=== PATIENT | female | born 1985 | race Caucasian/White ===

== ENCOUNTER 2023-08-03 11:24 | Day surgery (SDC) | payer OTHER, SELFPAY ==
--- NOTE | 2023-08-03 | PATH_ITS ---
[facility] Accession Number: [id number] No. of containers..02 Tissue . 01 Material submitted: . PART A: gastrointestinal site - ANTRUM PART B: esophagus, E-G Junction - GASTROESOPHAGEAL JUNCTION . 01 Diagnosis: A. Stomach, antrum, biopsy: Antral and oxyntic gastric mucosa with unremarkable histology. No H. Pylori like organisms identified (on the H/E- stained sections). Negative for gastritis, intestinal metaplasia, dysplasia, or malignancy. -- B. Gastro esophageal junction, biopsy: Columnar epithelium, negative for intestinal metaplasia. Squamous epithelium with no increased intraepithelial eosinophils. Negative for dysplasia and negative for malignancy. TXN 08/05/2023 1424 Local . 01 Electronically signed: . Tawfeemelina Metcalf MD, Pathologist NPI- [id number] . 01 Gross description: . Part A: ANTRUM: Received in formalin are 2 fragment(s) of stroud, soft tissue measuring 0.1 x 0.1 x 0.1 cm to 0.3 x 0.3 x 0.2 cm submitted entirely in 1 cassette(s) Part B: GASTROESOPHAGEAL JUNCTION: Received in formalin is 1 fragment(s) of stroud, soft tissue measuring 0.3 x 0.1 x 0.1 cm submitted entirely in 1 cassette(s) /MONSERRAT 08/04/2023 0112 Local . 01 Pathologist provided ICD-10: R12 . 01 CPT . 879985, 601349 Specimen Comment: A courtesy copy of this report has been sent to [phone] Performed at: [address] [address], [place], [place] [id number] MD Heath Carcamo MD Phone: [phone]
[2023-08-03 11:55] VITALS: BP 116/81; PULSE 84; RESP 16; TEMP 36.1; O2SAT 94
--- NOTE | 2023-08-03 11:57 | P.HP_ITS ---
History of Present Illness History of Present Illness Date Patient Seen: 08/03/23 Time Patient Seen: 11:57 Chief complaint: EGD w/poss bx Narrative: I reviewed the recent office note by Tao Lorenz. No significant changes. She has not taking any form of PPI. She has frequent heartburn, nausea, and vomiting over the last 8 years or so. She has a remote history of surgically treated peptic ulcer disease but did not get follow-up for this. She presents for said follow-up now. [facility] Medical History Sleep apnea Ulcer Surgical History H/O abdominoplasty H/O: Meds Home Medications and Allergies Home Medications Medication Instructions Recorded Confirmed Type Ortho Tri-Cyclen (21) 1 tab PO DAILY 08/03/23 08/03/23 History Allergies Allergy/AdvReac Type Severity Reaction Status Date / Time No Known Drug Allergies Allergy Verified 08/03/23 11:51 Review of Systems Review of Systems ROS: Yes All systems reviewed with the patient and are negative except as otherwise documented Exam Const General: cooperative HENMT Head: normal to inspection Eyes General: appearance normal, both eyes and all related structures Neck Neck: normal visual inspection Chest Chest: normal inspection of the chest Resp Effort & Inspection: normal respiratory effort Cardio Rate: regular rate GI Inspection: normal to inspection Skin General: no rashes or lesions noted Neuro General: patient alert and patient awake Extrem General: normal to inspection and no pedal edema Psych Appearance: grossly normal Assessment & Plan Assessment & Plan narrative: 37-year-old female with chronic intermittent nausea vomiting and reflux. She has a history of surgically treated peptic ulcer disease. EGD is pursued today.
--- NOTE | 2023-08-03 11:58 | PM.PREOP ---
Pre-operative Note Interval Note History & Physical reviewed/Exam performed by Physician: Yes Changes to H&P: No ASA Class (for procedural sedation): II
[2023-08-03] MEDS: LACTATED RINGERS 1,000 ML 42 ML IV (12:14)
--- NOTE | 2023-08-03 13:08 | PM.OP.EGD ---
Operative Date/Time/Diagnoses Date of procedure: 08/03/23 Time of procedure: 13:08 Pre-op diagnosis: Nausea, vomiting, reflux Post-op diagnosis: same Procedure & Clinicians Study performed: EGD with biopsies Same procedure as scheduled: Yes Indications: Intermittent nausea vomiting reflux Surgeon: Tamir Johnson Procedure Notes SCOAP/Timeout: Done Procedure in detail: After the risks and benefits were explained, written and verbal informed consent was obtained. The patient was brought into the procedure room and placed into the left lateral decubitus position. Please see anesthesia notes for sedation details. The scope was introduced into the mouth through the bite block and advanced under direct visualization to the 2nd portion of the duodenum. The scope was slowly withdrawn carefully examining the mucosa for any defects or lesions. Retroflexed views were accomplished in the stomach. The stomach was decompressed, the scope was then removed from the patient who tolerated the procedure well. Sedation minutes: 11 Complications: none Impression: 1. Duodenum: No recurrent ulceration identified from the bulb through to the 2nd portion. No stricturing. Visually I did not see any evidence of prior surgical intervention. There was a normal cordova bile staining of the 2nd portion. The major papilla was seen and appeared visually normal and easily draining bile. 2. Stomach: There was a mild gastropathy in the antrum and therefore biopsies were acquired for exclusion of H pylori. Retroflexed views disclosed a fairly cavernous stomach which was very ?J-shaped?. It was quite easy to see both the pyloric channel and the gastroesophageal junction in retroflexed views. In order to navigate into the duodenal I actually had to reduce the scope from approximately mid antrum twisty somewhat unusual. 3. Esophagus: The squamocolumnar junction was slightly variable but generally correlated with the GEJ at about 36 cm from the incisors. I did see evidence of LA grade B erosive esophagitis. Because of the wandering Z-line I elected to take a biopsy from GEJ to exclude specialized intestinal metaplasia. The remainder of the esophagus was unremarkable. Endoscopic diagnosis 1. J-shaped stomach 2. Mild gastropathy 3. LA grade B erosive esophagitis 4. Irregular Z-line Post-procedure Plan for aftercare: 1. Await histology. 2. Surveillance EGD will be considered contingent on histopathology results. 3. A more proactive anti-reflux therapy appears to be indicated here. 4. Follow up GI clinic. Disposition: PACU
[2023-08-03 13:09] VITALS: BP 108/76; PULSE 72; RESP 17; TEMP 36.2; O2SAT 92
[2023-08-03 13:14] VITALS: BP 110/75; PULSE 64; RESP 17; O2SAT 94
[2023-08-03 13:19] VITALS: BP 108/74; PULSE 70; RESP 16; O2SAT 95
[2023-08-03 13:26] VITALS: BP 124/76; PULSE 64; RESP 11; TEMP 36.7; O2SAT 94
--- NOTE | 2023-08-03 13:33 | SUR.PHASEII ---
Pt denies any complaints at present time. Pt ready to go home.
== END 2023-08-03 13:38 | disposition home or self-care (01) ==
PROVIDERS: Family Provider General Practice; Referring Provider Internal Medicine Gastroenterology; Visit Provider Internal Medicine Gastroenterology
PROC: 0DJ08ZZ Inspection of Upper Intestinal Tract, Via Natural or Artificial Opening Endoscopic (ICD-10-PCS; CPT 43239; principal; 2023-08-03 12:30)
DX: R11.2 Nausea with vomiting, unspecified (principal); K31.9 Disease of stomach and duodenum, unspecified; K20.80 Other esophagitis without bleeding
CPT/HCPCS: 43239; J2704

== ENCOUNTER 2024-01-14 13:00 | Outpatient (RCR) | payer OTHER, SELFPAY ==
--- NOTE | 2023-10-23 20:27 | PT.OIE ---
Current Diagnoses Stress incontinence (female) (male) (10/23/23) Past Medical History (Last Reviewed 08/03/23 @ 11:57 by Tamir Johnson MD) Sleep apnea Ulcer Past Surgical History (Last Reviewed 08/03/23 @ 11:57 by Tamir Johnson MD) H/O abdominoplasty H/O: Visit Care Team Role Provider Type Dorian Herrmann MD Attending Provider Non-Staff Family Provider Referring Provider Specialty: Family Practice Address: [facility], Email: Physical Therapy Initial Evaluation PT-OP-A Visit Information Start: 10/15/23 16:46 Freq: Status: Active Protocol: Document 10/23/23 11:25 LRN (Rec: 10/23/23 12:24 LRN [id number]) Out-Patient Physical Therapy Visit Information Visit Information Visit Type Initial Evaluation Visit Note Pt in BR to start Visit Start Time 11:25 Visit Stop Time 12:15 Visit Number 1 Evaluation Information Evaluation Date 10/23/23 Precautions Precautions LE lymphedema, ulcers, back pain, surgical history ( ruptured peptic ulcer, abdominoplasty, breast augmentation. PT-OP-B Current Condition Start: 10/15/23 16:46 Freq: Status: Active Protocol: Document 10/23/23 11:25 LRN (Rec: 10/23/23 12:24 LRN [id number]) Current Condition History of Current Condition Onset Date 3.5 yrs ago. Current Complaints Urinary incontinence History of Current Condition YARED started 3.5 yrs ago after returning from a [place] that pt thoughout was normal, so did nothing about it until now. 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 She currently is having lymphedema treatments at [facility] in [place] (seen for 6 sessions to date). She plans to soon get a LE compression machine for the LE's for home use. Pt sleeps with a CPAP machine. Prior Treatments and Tests None. Pt is currently being treated for LE lymphedema. Developmental History Developmental History Has 2 children, first natural, 2nd emergency after 16 hrs of waiting. had 2 epidurals because anesthesia didn't work first 2 times. No urinary leakage after first child. 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 HEP. Current Functional Impairments (Reported) Functional Limitations- Work/School Has been in for 23 yrs. Functional Limitations- Recreation/ She runs 3-4x/week and does an Hobbies ex class. States she has been told she shouldn't run, but to incline walk instead. Personal Factors Other Personal Factors That May Effect Receiving lymphatic therapy Therapy/Recovery for LE lymphedema. 02/01/16 surgery for ruptured peptic ulcer and almost from sepsis (6 months after having son). Oct 2018 - adominalplasty. Recovering from rough divorce that ended a yr ago. PT-OP-C Subjective Start: 10/15/23 16:46 Freq: Status: Active Protocol: Document 10/23/23 11:25 LRN (Rec: 10/23/23 12:24 LRN [id number]) OP-PT Subjective Patient Comments Patient Comments Pt reports just starting her period and bleeding; therefore would like to defer PF assessment until next visit. Patient Questionnaires Pelvic Pain and Urgency/Frequency Patient Symptom Scale Pelvic Pain Score 12 OP-PT Pain Assessment Pain Assessment Grid Paper Pain Assessment Grid Completed Yes Location L LE Pain Location Details L thigh/ankle Intensity 4 Scale Used Numeric (0 - 10) Low Back Pain Location Details Upper low back Intensity 2 Scale Used Numeric (0 - 10) Abdomen Pain Location Details Abdomen towards R side Intensity 2 Scale Used Numeric (0 - 10) PT-OP-I Pelvic Floor Start: 10/15/23 16:46 Freq: Status: Active Protocol: Document 10/23/23 11:25 LRN (Rec: 10/23/23 12:24 LRN [id number]) Pelvic Floor Assessment Urine Urinary Symptoms Urge Sensation,Dribbling After Urination,Incomplete Emptying ,Pain Other Urinary Symptoms Sometimes sharp shooting pain in Pelvic area with sudden urge to urinate after urintating. Triggers: running water As soon as leavest he bathroom , walking and exercising has urge to urinate. Leakage Size Small Leakage Cause Cough,Exercise,Urge Leaks Per Day 2-3x/day Voiding Frequency every 45-60 minutes, 10-12x/ day Nocturia 2-3x/night (every 2 hrs) Pads Used In 24 Hours 2-3 Urine Pad Type Panty Liner Bowel Bowel Movement Frequency 4-5/day Motley Stool Chart Comments Mostly type 2,4. PT-OP-J Posture/Palpation/Skin Start: 10/15/23 16:46 Freq: Status: Active Protocol: Document 10/23/23 11:25 LRN (Rec: 10/23/23 12:24 LRN [id number]) Posture Evaluation Position Standing L-Spine Posture Increased Lordosis Shoulder Posture (R) Elevated Pelvis Posture Anteriorly Tilted Knee Posture (L) Genu Valgus,(R) Genu Valgus Comments Posture Comments Dowager hump. Palpation Assessment Location Abdomen Palpation Location Decreased soft tissue mobility on L side of trunk. Palpation Findings Soft Tissue Tightness PT-OP-K Range of Motion Start: 10/15/23 16:46 Freq: Status: Active Protocol: Document 10/23/23 11:25 LRN (Rec: 10/23/23 12:24 LRN [id number]) Lumbar Spine Range of Motion Lumbar Spine Active Degrees Testing Position Standing Flexion 50 Extension 35 Rotation Left 30 Rotation Right 0 Lateral Flexion Left 20 Lateral Flexion Right 15 ROM Limitations Soft Tissue Tightness Hip Goniometric Range of Motion Hip Right Passive Testing Position Supine Abduction 25 Internal Rotation 20 External Rotation 40 Left Passive Testing Position Supine Abduction 25 Internal Rotation 40 External Rotation 30 PT-OP-M Strength Start: 10/15/23 16:46 Freq: Status: Active Protocol: Document 10/23/23 11:25 LRN (Rec: 10/23/23 12:24 LRN [id number]) Trunk Strength Trunk Manual Muscle Testing Core Stabilization Loss of core rotational stability with MMT of LE's. Hip Strength Hip Manual Muscle Testing Right Abduction 3 Fair Adduction 3- Fair- External Rotation 3+ Fair+ Comments Strength is 5/5 except as indicated above. Left External Rotation 3+ Fair+ Comments Strength is 5/5 except as indicated above. PT-OP-Q Treatments Start: 10/15/23 16:46 Freq: Status: Active Protocol: Document 10/23/23 11:25 LRN (Rec: 10/23/23 12:24 LRN [id number]) Self-Care/Home Management Treatment Education Other Education Discussed results of partial evaluation and for completion of PF exam at next visit, goals, treatment, and plan of care (POC) with pt, discussed attendance/cx/dns policy; pt agreeable to evaluation, goals , treatment, attendance/cx/dns policy and POC. Discussed and educated pt in specifics for completion of in use of Bladder Diary and I/S in tracking for 1 week. Discussed pt's current exercise program and recommended pt stop running as it may be aggrevating her lymphedema and possibly affecting her PF. Activities Self-Care/Home Management Activities Issued & reviewed HEP: Kegel ex's and discussed exercise of Quick Flicks, Long Holds and Aggravators. PT-OP-T Assessment and Plan Start: 10/15/23 16:46 Freq: Status: Active Protocol: Document 10/23/23 11:25 LRN (Rec: 10/23/23 12:24 LRN [id number]) Physical Therapy Assessment Rehab Potential Rehabilitation Potential Fair Evaluation Complexity Number of Personal Factors/Comorbidities 3 or More Number of Body Systems Impaired 4 or More Clinical Presentation at Evaluation Evolving Impairments Impairments Activity Tolerance,Edema,Pain, Posture,ROM,Soft Tissue Mobility,Strength,Transfers Goals Three Impairment Increased frequency of urination (10-12x/day) Short Term Goal (STG) Pt will be educate in urge deference technique for bladder retraining to decrease times of urination to no more than 8x/day STG Duration 12/04/23 Keymodule Assembly Supervisor Goal (LTG) Pt will be able to decrease frequency of urination to no more than every 2 hours. LTG Duration 01/15/24 Two Impairment Urinary incontinence, requiring use of 2-3 pads/day Short Term Goal (STG) Improve PF strength and pt educated in core pressure management with transfers & ADLs, with pt able to decrease use of pads to 1x/during the day. STG Duration 12/04/23 Usp Goal (LTG) Pt will be able to regain urinary continence with coughing to elimninate use of daily pads and be able to reduce fear of urinary leakage with walking. LTG Duration 01/15/24 One Impairment Pt lacks appropriate self care HEP Short Term Goal (STG) Pt educated in proper transfers to lessen core abdominal pressure. STG Duration 12/04/23 Usp Goal (LTG) Pt will be independent in a self care HEP for PF/core strengthening while minimizing core pressure increase, hip/ trunk ROM ex's. LTG Duration 01/15/24 Assessment Summary Assessment Pt is a 38 yo full duty female who presents with mixed urinary incontinence symptoms and possibly pelvic floor congestion that may be exacerbating her LE lymphedema , she has decreased trunk and hip mobility and decreased core strength and R>L hip strength. Today I was not able to fully complete the PF assessment due to the pt being on her period and pt deferring external and internal assessment; therefore I will further assess her PF at her next visit. I would recommend the pt have her LE blood flow assessed for possible pelvi congestion. The pt will benefit from skilled phyisical therapy for manual therapy, therapeutic exer and therapeutic activities, neuro reeducation, self care/pt education, and HEP. The pt would very much benefit from electrical stimuation, but since it is not an approved treatment modality the pt is choosing not to have this treatment. Physical Therapy Plan Frequency and Duration Frequency of Treatment 1x/Week Duration of treatment (weeks) 12 Plan of Care Start Date 10/23/23 Plan of Care End Date 01/15/24 Therapeutic Interventions Therapeutic Interventions Coordination Training,Home Exercise Program,Manual Therapy,Neuromuscular Re- education,Self-Care/Home Management,Soft Tissue Mobilization,Therapeutic Activities,Therapeutic Exercises Modalities Biofeedback,Cold Pack/Ice Massage,Electric Stimulation, Hot Packs Next Visit Focus/Plan Next Note Type Treatment Note Next Visit Plan Next: Assess PF (manual), Review bladder diary, pt education in bladder retraining with urge deference technique, review Kegel for use w/o substitute muscles, teach deep breathing if needed , educate in core pressure management of proper breathing with transfers and ADLs/body mechanics. Ther Ex: PF/core strengthening, improve hip (IR /ER and check flex/AB) and trunk (flex, R rot, RSB) mobility. Educate/discuss hip hinge with sit to stand, and moving in bed using breathwork and core/ PF stabilization for proper abdominal pressure system, STM of abdomen (and urachus) & bladder mobility. POC: Pt education, Manual therapy, Therapeutic Exercises, Therapeutic Activities, Neuromuscular Reeducation (with biofeedback vaginal sensor), pt education/ self care and HEP.
--- NOTE | 2023-11-13 17:59 | PT.OTN ---
Current Diagnoses Stress incontinence (female) (male) (11/13/23) Physical Therapy Treatment Note PT-OP-A Visit Information Start: 10/15/23 16:46 Freq: Status: Active Protocol: Document 11/13/23 09:09 LRN (Rec: 11/13/23 10:15 LRN [id number]) Out-Patient Physical Therapy Visit Information Visit Information Visit Type Treatment Note Visit Note No biofeedback use. Visit Start Time 09:09 Visit Stop Time 10:05 Visit Number 2 Evaluation Information Evaluation Date 10/23/23 Precautions Precautions LE lymphedema, ulcers, back pain, surgical history ( ruptured peptic ulcer, abdominoplasty, breast augmentation). PT-OP-B Current Condition Start: 10/15/23 16:46 Freq: Status: Active Protocol: Document 10/23/23 11:25 LRN (Rec: 10/23/23 12:24 LRN [id number]) Current Condition History of Current Condition Onset Date 3.5 yrs ago. Current Complaints Urinary incontinence History of Current Condition YARED started 3.5 yrs ago after [place] from [place] [employer] [place] that pt thoughout was normal, so did nothing about it until now. 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 She currently is having lymphedema treatments at [facility] in [place] (seen for 6 sessions to date). She plans to soon get a LE compression machine for the LE's for home use. Pt sleeps with a CPAP machine. Prior Treatments and Tests None. Pt is currently being treated for LE lymphedema. Developmental History Developmental History Has 2 children, first natural, 2nd emergency after 16 hrs of waiting. had 2 epidurals because anesthesia didn't work first 2 times. No urinary leakage after first child. 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 HEP. Current Functional Impairments (Reported) Functional Limitations- Work/School Has been in for 23 yrs. Functional Limitations- Recreation/ She runs 3-4x/week and does an Hobbies ex class. States she has been told she shouldn't run, but to incline walk instead. Personal Factors Other Personal Factors That May Effect Receiving lymphatic therapy Therapy/Recovery for LE lymphedema. 02/01/16 surgery for ruptured peptic ulcer and almost from sepsis (6 months after having son). Oct 2018 - adominalplasty. Recovering from rough divorce that ended a yr ago. PT-OP-C Subjective Start: 10/15/23 16:46 Freq: Status: Active Protocol: Document 11/13/23 09:09 LRN (Rec: 11/13/23 10:15 LRN [id number]) OP-PT Subjective Patient Comments Patient Comments Didn't do a lot of the bladder diary because she was out of work a lot, because doing team building things. Approved for lymphedema pump by [employer] . Stopped running. Hasn't tried pool. Doing HIT training. PT-OP-I Pelvic Floor Start: 10/15/23 16:46 Freq: Status: Active Protocol: Document 11/13/23 09:09 LRN (Rec: 11/13/23 17:24 LRN [id number]) Pelvic Floor Assessment Prolapse Cystocele Grade 2 Perineal Descent Resting Absent Bearing Present Contraction Ability Voluntary Contraction Weak Manual Muscle Testing Left 1 Manual Muscle Testing Right 2 Manual Muscle Testing Anterior 2 Manual Muscle Testing Posterior 3 Muscle Endurance (Seconds) 3 Number of Quick Contractions In 10 9 Seconds Comments Pelvic Floor Comments PF endurance weakens mildly after 3 secs, but contraction remains. PT-OP-J Posture/Palpation/Skin Start: 10/15/23 16:46 Freq: Status: Active Protocol: Document 10/23/23 11:25 LRN (Rec: 10/23/23 12:24 LRN [id number]) Posture Evaluation Position Standing L-Spine Posture Increased Lordosis Shoulder Posture (R) Elevated Pelvis Posture Anteriorly Tilted Knee Posture (L) Genu Valgus,(R) Genu Valgus Comments Posture Comments Dowager hump. Palpation Assessment Location Abdomen Palpation Location Decreased soft tissue mobility on L side of trunk. Palpation Findings Soft Tissue Tightness PT-OP-K Range of Motion Start: 10/15/23 16:46 Freq: Status: Active Protocol: Document 10/23/23 11:25 LRN (Rec: 10/23/23 12:24 LRN [id number]) Lumbar Spine Range of Motion Lumbar Spine Active Degrees Testing Position Standing Flexion 50 Extension 35 Rotation Left 30 Rotation Right 0 Lateral Flexion Left 20 Lateral Flexion Right 15 ROM Limitations Soft Tissue Tightness Hip Goniometric Range of Motion Hip Right Passive Testing Position Supine Abduction 25 Internal Rotation 20 External Rotation 40 Left Passive Testing Position Supine Abduction 25 Internal Rotation 40 External Rotation 30 PT-OP-M Strength Start: 10/15/23 16:46 Freq: Status: Active Protocol: Document 10/23/23 11:25 LRN (Rec: 10/23/23 12:24 LRN [id number]) Trunk Strength Trunk Manual Muscle Testing Core Stabilization Loss of core rotational stability with MMT of LE's. Hip Strength Hip Manual Muscle Testing Right Abduction 3 Fair Adduction 3- Fair- External Rotation 3+ Fair+ Comments Strength is 5/5 except as indicated above. Left External Rotation 3+ Fair+ Comments Strength is 5/5 except as indicated above. PT-OP-Q Treatments Start: 10/15/23 16:46 Freq: Status: Active Protocol: Document 11/13/23 09:09 LRN (Rec: 11/13/23 10:15 LRN [id number]) Therapeutic Exercises Supine Exercises Kegel long hold Reps/Minutes 10' Comments Manual digital assessment. Kegel Quick Reps/Minutes 8' Comments Manual digital assessment. Manual Therapy Treatment Consent Patient gave verbal consent for manual Yes treatment Self-Care/Home Management Treatment Education Other Education Discussed POC and her travels. 16' Discussed her ex routine and what to avoid (planks) unless modified to place bladder lower than hips on incline. Discussed at pt's questioning her PF health regarding STD concerns and possible reasons for small white soft blobs in vaginal canal. Discussed at length, reasons to be vaginally assessed by physician, discussed previous PAP smear being negative for STDS;therefore why needing testing for infection, discussed pt's cleansing practice of PF, with pt discussing her using small cloth with soap each shower to clean internal vaginal canal, then hang drying towel between each use. I/S pt not to clean internally but discussed recommended cleansing of vulva water water only and to not use soaps. Reassured pt that request for vaginal assessment was to checked (due to white chunks) prior to use of Vemg internal assesment of PF strength. Activities Self-Care/Home Management Activities Discussed and I/S pt to seek from referring physician vaginal assessment for possible infection. PT-OP-T Assessment and Plan Start: 10/15/23 16:46 Freq: Status: Active Protocol: Document 11/13/23 09:09 LRN (Rec: 11/13/23 10:15 LRN [id number]) Physical Therapy Assessment Goals Three Impairment Increased frequency of urination (10-12x/day) Short Term Goal (STG) Pt will be educate in urge deference technique for bladder retraining to decrease times of urination to no more than 8x/day STG Duration 12/04/23 Mcfp Goal (LTG) Pt will be able to decrease frequency of urination to no more than every 2 hours. LTG Duration 01/15/24 Two Impairment Urinary incontinence, requiring use of 2-3 pads/day Short Term Goal (STG) Improve PF strength and pt educated in core pressure management with transfers & ADLs, with pt able to decrease use of pads to 1x/during the day. STG Duration 12/04/23 Mcfp Goal (LTG) Pt will be able to regain urinary continence with coughing to elimninate use of daily pads and be able to reduce fear of urinary leakage with walking. LTG Duration 01/15/24 One Impairment Pt lacks appropriate self care HEP Short Term Goal (STG) Pt educated in proper transfers to lessen core abdominal pressure. STG Duration 12/04/23 Fitter Machinist Goal (LTG) Pt will be independent in a self care HEP for PF/core strengthening while minimizing core pressure increase, hip/ trunk ROM ex's. LTG Duration 01/15/24 Assessment Summary Assessment 38 yo female, full duty who is planning discharge at some point, with mixed urinary incontinence and possibly pelvic floor congestion, exacerbated by LE lyphedema. She has dec'd trunk/hip mobility & dec'd core strength and R>L hip strength. Today, after manual digital assessment of PF contractions/training (Long hold/Quick flicks), removal of digit showed small white blobs from vaginal canal. Pt concerned, resulting in long discussions of PF health and PF care. After long discussion, it appears pt has been washing inside her vaginal canal with soapy cloth with showers, not changeed between shower, instead hung dry. Pt is aware now to not wash inside, and is to just rinse with water. Pt needs to be assessed for possible vaginal infection before use of Vemg electrode for PF strengthening and neuro- reeducation of PF contractions . PF strength of contraction & endurance is decreased. NOT able to use Vemg for strengthening until pt cleared of possible vaginal infection . Physical Therapy Plan Frequency and Duration Frequency of Treatment 1x/Week Duration of treatment (weeks) 12 Plan of Care Start Date 10/23/23 Plan of Care End Date 01/15/24 Next Visit Focus/Plan Next Note Type Treatment Note Next Visit Plan Next: No Vemg strengthening until cleared of possible vaginal infection. Assess PF (manual), Review bladder diary , pt education in bladder retraining with urge deference technique, review Kegel for use w/o substitute muscles, teach deep breathing if needed , educate in core pressure management of proper breathing with transfers and ADLs/body mechanics. Ther Ex: PF/core strengthening, improve hip (IR /ER and check flex/AB) and trunk (flex, R rot, RSB) mobility. Educate/discuss hip hinge with sit to stand, and moving in bed using breathwork and core/ PF stabilization for proper abdominal pressure system, STM of abdomen (and urachus) & bladder mobility. POC: No Biofeedback per . Pt education, Manual therapy, Therapeutic Exercises, Therapeutic Activities, Neuromuscular Reeducation (with biofeedback vaginal sensor), pt education/ self care and HEP.
--- NOTE | 2023-12-04 13:43 | PT.OTN ---
Current Diagnoses Stress incontinence (female) (male) (12/04/23) Physical Therapy Treatment Note PT-OP-A Visit Information Start: 10/15/23 16:46 Freq: Status: Active Protocol: Document 12/04/23 09:06 LRN (Rec: 12/04/23 09:52 LRN [id number]) Out-Patient Physical Therapy Visit Information Visit Information Visit Type Treatment Note Visit Note No biofeedback use. Visit Start Time 09:06 Visit Stop Time 09:44 Visit Number 3 Evaluation Information Evaluation Date 10/23/23 Precautions Precautions LE lymphedema, ulcers, back pain, surgical history ( ruptured peptic ulcer, abdominoplasty, breast augmentation). PT-OP-B Current Condition Start: 10/15/23 16:46 Freq: Status: Active Protocol: Document 10/23/23 11:25 LRN (Rec: 10/23/23 12:24 LRN [id number]) Current Condition History of Current Condition Onset Date 3.5 yrs ago. 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 She currently is having lymphedema treatments at [facility] in [place] (seen for 6 sessions to date). She plans to soon get a LE compression machine for the LE's for home use. Pt sleeps with a CPAP machine. Prior Treatments and Tests None. Pt is currently being treated for LE lymphedema. Developmental History Developmental History Has 2 children, first natural, 2nd emergency after 16 hrs of waiting. had 2 epidurals because anesthesia didn't work first 2 times. No urinary leakage after first child. 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 HEP. Current Functional Impairments (Reported) Functional Limitations- Work/School Has been in for 23 yrs. Functional Limitations- Recreation/ She runs 3-4x/week and does an Hobbies ex class. States she has been told she shouldn't run, but to incline walk instead. Personal Factors Other Personal Factors That May Effect Receiving lymphatic therapy Therapy/Recovery for LE lymphedema. 02/01/16 surgery for ruptured peptic ulcer and almost from sepsis (6 months after having son). Oct 2018 - adominalplasty. Recovering from rough divorce that ended a yr ago. PT-OP-C Subjective Start: 10/15/23 16:46 Freq: Status: Active Protocol: Document 12/04/23 09:06 LRN (Rec: 12/04/23 09:52 LRN [id number]) OP-PT Subjective Patient Comments Patient Comments On standby for PF check Dec, but on standby list. Hasn't noticed weird discharge or smell. Going to ask for OBGYN approval. [place], so throat is dry. PT-OP-I Pelvic Floor Start: 10/15/23 16:46 Freq: Status: Active Protocol: Document 11/13/23 09:09 LRN (Rec: 11/13/23 17:24 LRN [id number]) Pelvic Floor Assessment Prolapse Cystocele Grade 2 Perineal Descent Resting Absent Bearing Present Contraction Ability Voluntary Contraction Weak Manual Muscle Testing Left 1 Manual Muscle Testing Right 2 Manual Muscle Testing Anterior 2 Manual Muscle Testing Posterior 3 Muscle Endurance (Seconds) 3 Number of Quick Contractions In 10 9 Seconds Comments Pelvic Floor Comments PF endurance weakens mildly after 3 secs, but contraction remains. PT-OP-J Posture/Palpation/Skin Start: 10/15/23 16:46 Freq: Status: Active Protocol: Document 10/23/23 11:25 LRN (Rec: 10/23/23 12:24 LRN [id number]) Posture Evaluation Position Standing L-Spine Posture Increased Lordosis Shoulder Posture (R) Elevated Pelvis Posture Anteriorly Tilted Knee Posture (L) Genu Valgus,(R) Genu Valgus Comments Posture Comments Dowager hump. Palpation Assessment Location Abdomen Palpation Location Decreased soft tissue mobility on L side of trunk. Palpation Findings Soft Tissue Tightness PT-OP-K Range of Motion Start: 10/15/23 16:46 Freq: Status: Active Protocol: Document 10/23/23 11:25 LRN (Rec: 10/23/23 12:24 LRN [id number]) Lumbar Spine Range of Motion Lumbar Spine Active Degrees Testing Position Standing Flexion 50 Extension 35 Rotation Left 30 Rotation Right 0 Lateral Flexion Left 20 Lateral Flexion Right 15 ROM Limitations Soft Tissue Tightness Hip Goniometric Range of Motion Hip Right Passive Testing Position Supine Abduction 25 Internal Rotation 20 External Rotation 40 Left Passive Testing Position Supine Abduction 25 Internal Rotation 40 External Rotation 30 PT-OP-M Strength Start: 10/15/23 16:46 Freq: Status: Active Protocol: Document 10/23/23 11:25 LRN (Rec: 10/23/23 12:24 LRN [id number]) Trunk Strength Trunk Manual Muscle Testing Core Stabilization Loss of core rotational stability with MMT of LE's. Hip Strength Hip Manual Muscle Testing Right Abduction 3 Fair Adduction 3- Fair- External Rotation 3+ Fair+ Comments Strength is 5/5 except as indicated above. Left External Rotation 3+ Fair+ Comments Strength is 5/5 except as indicated above. PT-OP-Q Treatments Start: 10/15/23 16:46 Freq: Status: Active Protocol: Document 12/04/23 09:06 LRN (Rec: 12/04/23 09:52 LRN [id number]) Therapeutic Exercises Supine Exercises Lateral Hip stretch Side bilateral Reps/Minutes 4' Comments extra time to determine best position and max tolerated stretch Pirformis stretch Side bilateral Reps/Minutes 4' Comments extra time to determine best position and max tolerated stretch Ilipoas stretch Supine Exercise Name Seng Test position with leg off plinth Side bilateral Reps/Minutes 4' Comments extra time to determine best position and max tolerated stretch Therapeutic Activity Therapeutic Activity Coordination of breath/Kegel with Transfers Name Transfer trng stand<>sit<> supine, coordinated with breath & Kegel. Reps/Minutes 10 Self-Care/Home Management Treatment Education Other Education Bladder diary review: Discussed voiding frequency and trainng. Noted less urinary leakage. Pt able to more completely void after sitting ontoilet a little longer. Pt education and discussion of Urge deference technique and discussion of how pt can use to delay urination for bladder retraining. Activities Self-Care/Home Management Activities Issued & reviewed HEP: HIp stretches (Piriformis, lateral hip, fig 4 & Ilipsoas). PT-OP-T Assessment and Plan Start: 10/15/23 16:46 Freq: Status: Active Protocol: Document 12/04/23 09:06 LRN (Rec: 12/04/23 09:52 LRN [id number]) Physical Therapy Assessment Goals Three Impairment Increased frequency of urination (10-12x/day) Short Term Goal (STG) Pt will be educate in urge deference technique for bladder retraining to decrease times of urination to no more than 8x/day. 12/04/23: Pt educated in urge deference technique for bladder retraining. STG Duration 12/04/23 progressed 12/04/23 (need to decr voiding times) Transformer Tester Goal (LTG) Pt will be able to decrease frequency of urination to no more than every 2 hours. LTG Duration 01/15/24 Two Impairment Urinary incontinence, requiring use of 2-3 pads/day Short Term Goal (STG) Improve PF strength and pt educated in core pressure management with transfers & ADLs, with pt able to decrease use of pads to 1x/during the day. 12/04/23: Pt educated in transfers to lessen core abdominal pressure and pt able to demonstrate proper coordination. STG Duration 12/04/23 progressed 12/04/23 (need educ w/ADLs and decr use of pads) Assisted Goal (LTG) Pt will be able to regain urinary continence with coughing to elimninate use of daily pads and be able to reduce fear of urinary leakage with walking. LTG Duration 01/15/24 One Impairment Pt lacks appropriate self care HEP Short Term Goal (STG) Pt educated in proper transfers to lessen core abdominal pressure. 12/04/23: Pt educated in transfers to lessen core abdominal pressure and pt able to demonstrate proper coordination. STG Duration 12/04/23 (12/04/23: MET GOAL) Assisted Goal (LTG) Pt will be independent in a self care HEP for PF/core strengthening while minimizing core pressure increase, hip/ trunk ROM ex's. 12/04/23: HEP: HIp stretches (Piriformis, lateral hip, fig 4 & Ilipsoas) LTG Duration 01/15/24 progressed 12/04/23. Assessment Summary Assessment Pt returns after 3 wks being gone for work. Per bladder diary review, her urinary leakage amount is less (was large>medium, now small to medium), urges are 1-3 (was 2- 3), and voiding 1x at night ( after 3-4 hrs); daytime voiding remains every hour. Pt is slowly progressing, she has one more long trip, then will be able to focus more on her PF rehab. Physical Therapy Plan Frequency and Duration Frequency of Treatment 1x/Week Duration of treatment (weeks) 12 Plan of Care Start Date 10/23/23 Plan of Care End Date 01/15/24 Next Visit Focus/Plan Next Note Type Treatment Note Next Visit Plan Next: Assess for changes in voiding hourly. Issue handout for coordinated transfers with breath and educate coordination with ADLs. Next: No Vemg strengthening until cleared of possible vaginal infection. Assess PF (manual), Cont pt bladder retraining (with urge deference technique) to increase time between voids. Review Kegel for use w/o substitute muscles, teach deep breathing if needed, review core pressure management with transfers and educate with ADLs/body mechanics. Ther Ex: PF/core strengthening, improve hip (IR /ER), check flex/AB; and trunk (flex, R rot, RSB) mobility. Educate/discuss hip hinge with sit to stand, and core/PF stabilization for proper abdominal pressure system, STM of abdomen (and urachus) & bladder mobility. POC: No Biofeedback per . Pt education, Manual therapy, Therapeutic Exercises, Therapeutic Activities, Neuromuscular Reeducation (with biofeedback vaginal sensor), pt education/ self care and HEP.
--- NOTE | 2023-12-22 10:24 | PT-OP ANOTE ---
Per phone conversation pt states she does not have that she has an appt today. Pt reminded of her next appt.
--- NOTE | 2023-12-28 17:20 | PT.OTN ---
Current Diagnoses Stress incontinence (female) (male) (12/28/23) Physical Therapy Treatment Note PT-OP-A Visit Information Start: 10/15/23 16:46 Freq: Status: Active Protocol: Document 12/28/23 13:03 LRN (Rec: 12/28/23 13:53 LRN [id number]) Out-Patient Physical Therapy Visit Information Visit Information Visit Type Treatment Note Visit Note No biofeedback use until pt seen in Dec for possible vaginal infection. Visit Start Time 13:03 Visit Stop Time 13:47 Visit Number 4 Evaluation Information Evaluation Date 10/23/23 Precautions Precautions LE lymphedema, ulcers, back pain, surgical history ( ruptured peptic ulcer, abdominoplasty, breast augmentation). PT-OP-B Current Condition Start: 10/15/23 16:46 Freq: Status: Active Protocol: Document 10/23/23 11:25 LRN (Rec: 10/23/23 12:24 LRN [id number]) Current Condition History of Current Condition Onset Date 3.5 yrs ago. Current Complaints Urinary incontinence History of Current Condition YARED started 3.5 yrs ago after [place] from [place] [employer] [place] that pt thoughout was normal, so did nothing about it until now. 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 She currently is having lymphedema treatments at [facility] in [place] (seen for 6 sessions to date). She plans to soon get a LE compression machine for the LE's for home use. Pt sleeps with a CPAP machine. Prior Treatments and Tests None. Pt is currently being treated for LE lymphedema. Developmental History Developmental History Has 2 children, first natural, 2nd emergency after 16 hrs of waiting. had 2 epidurals because anesthesia didn't work first 2 times. No urinary leakage after first child. 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 HEP. Current Functional Impairments (Reported) Functional Limitations- Work/School Has been in for 23 yrs. Functional Limitations- Recreation/ She runs 3-4x/week and does an Hobbies ex class. States she has been told she shouldn't run, but to incline walk instead. Personal Factors Other Personal Factors That May Effect Receiving lymphatic therapy Therapy/Recovery for LE lymphedema. 02/01/16 surgery for ruptured peptic ulcer and almost from sepsis (6 months after having son). Oct 2018 - adominalplasty. Recovering from rough divorce that ended a yr ago. PT-OP-C Subjective Start: 10/15/23 16:46 Freq: Status: Active Protocol: Document 12/28/23 13:03 LRN (Rec: 12/28/23 13:53 LRN [id number]) OP-PT Subjective Patient Comments Patient Comments Had surgery 4 days ago, to remove cyst on her back (1 hour procedure). Uncomfortable on back, because of stitches where bra connects in back. She states she told the surgeon she was doing PT and he didn't tell her she couldn't and told her she could go back to work. States she has been exercising in the gym. States she is not voiding hourly because she is not drinking as much water (40-60 oz/day). Voiding every 2.5 hrs. Bowel Mvmts are 3/day. States she hasn't leaked as much and is sitting longer on the toilet. Using 1 pad/day. PT-OP-I Pelvic Floor Start: 10/15/23 16:46 Freq: Status: Active Protocol: Document 11/13/23 09:09 LRN (Rec: 11/13/23 17:24 LRN [id number]) Pelvic Floor Assessment Prolapse Cystocele Grade 2 Perineal Descent Resting Absent Bearing Present Contraction Ability Voluntary Contraction Weak Manual Muscle Testing Left 1 Manual Muscle Testing Right 2 Manual Muscle Testing Anterior 2 Manual Muscle Testing Posterior 3 Muscle Endurance (Seconds) 3 Number of Quick Contractions In 10 9 Seconds Comments Pelvic Floor Comments PF endurance weakens mildly after 3 secs, but contraction remains. PT-OP-J Posture/Palpation/Skin Start: 10/15/23 16:46 Freq: Status: Active Protocol: Document 10/23/23 11:25 LRN (Rec: 10/23/23 12:24 LRN [id number]) Posture Evaluation Position Standing L-Spine Posture Increased Lordosis Shoulder Posture (R) Elevated Pelvis Posture Anteriorly Tilted Knee Posture (L) Genu Valgus,(R) Genu Valgus Comments Posture Comments Dowager hump. Palpation Assessment Location Abdomen Palpation Location Decreased soft tissue mobility on L side of trunk. Palpation Findings Soft Tissue Tightness PT-OP-K Range of Motion Start: 10/15/23 16:46 Freq: Status: Active Protocol: Document 10/23/23 11:25 LRN (Rec: 10/23/23 12:24 LRN [id number]) Lumbar Spine Range of Motion Lumbar Spine Active Degrees Testing Position Standing Flexion 50 Extension 35 Rotation Left 30 Rotation Right 0 Lateral Flexion Left 20 Lateral Flexion Right 15 ROM Limitations Soft Tissue Tightness Hip Goniometric Range of Motion Hip Right Passive Testing Position Supine Abduction 25 Internal Rotation 20 External Rotation 40 Left Passive Testing Position Supine Abduction 25 Internal Rotation 40 External Rotation 30 PT-OP-M Strength Start: 10/15/23 16:46 Freq: Status: Active Protocol: Document 10/23/23 11:25 LRN (Rec: 10/23/23 12:24 LRN [id number]) Trunk Strength Trunk Manual Muscle Testing Core Stabilization Loss of core rotational stability with MMT of LE's. Hip Strength Hip Manual Muscle Testing Right Abduction 3 Fair Adduction 3- Fair- External Rotation 3+ Fair+ Comments Strength is 5/5 except as indicated above. Left External Rotation 3+ Fair+ Comments Strength is 5/5 except as indicated above. PT-OP-Q Treatments Start: 10/15/23 16:46 Freq: Status: Active Protocol: Document 12/28/23 13:03 LRN (Rec: 12/28/23 13:53 LRN [id number]) Therapeutic Exercises Supine Exercises Kegel long hold Reps/Minutes 3 breath hold/20 SR x 10-15 Comments Pt cued to breath during ex, hands on belly to avoid abdominal contracton. Kegel Quick Reps/Minutes 1-2 SH/4 SR, 10-15x Comments Pt cued to breath during ex, hands on belly to avoid abdominal contracton. Therapeutic Activity Therapeutic Activity Coordination of breath w/Kegel/ADLs Name Coordination of breath/Kegel w /ADLs of squat, lift, rot, reach overhead Reps/Minutes 15' Coordination of breath/Kegel with Transfers Name Sit<>stand, sit<>sup Reps/Minutes Quick Contractions 5x , Long Hold contraction x 2 Comments Cued to hold Kegel from sit<> sup Self-Care/Home Management Treatment Activities Self-Care/Home Management Activities Issued & reviewed handout for: Coordinated transfers with breath, and Proper body mechanics and coordination of breath with ADLs. Issued L2 TB. PT-OP-T Assessment and Plan Start: 10/15/23 16:46 Freq: Status: Active Protocol: Document 12/28/23 13:03 LRN (Rec: 12/28/23 13:53 LRN [id number]) Physical Therapy Assessment Goals Three Impairment Increased frequency of urination (10-12x/day) Short Term Goal (STG) Pt will be educate in urge deference technique for bladder retraining to decrease times of urination to no more than 8x/day. 12/04/23: Pt educated in urge deference technique for bladder retraining. 12/28/23: Getting up 1x/night , and voiding every 2.5 hrs. STG Duration 12/04/23 progressed 12/04/23 (need to decr voiding times) [employer] Supervisor Goal (LTG) Pt will be able to decrease frequency of urination to no more than every 2 hours. LTG Duration 01/15/24 Two Impairment Urinary incontinence, requiring use of 2-3 pads/day Short Term Goal (STG) Improve PF strength and pt educated in core pressure management with transfers & ADLs, with pt able to decrease use of pads to 1x/during the day. 12/04/23: Pt educated in transfers to lessen core abdominal pressure and pt able to demonstrate proper coordination. 12/28/23: Reviewed coordination of transfers with breath and educated coordination with ADLs. Pt using 1 pad during the day. STG Duration 12/04/23 (12/28/23: MET GOAL ) [employer] Supervisor Goal (LTG) Pt will be able to regain urinary continence with coughing to elimninate use of daily pads and be able to reduce fear of urinary leakage with walking. LTG Duration 01/15/24 One Impairment Pt lacks appropriate self care HEP Short Term Goal (STG) Pt educated in proper transfers to lessen core abdominal pressure. 12/04/23: Pt educated in transfers to lessen core abdominal pressure and pt able to demonstrate proper coordination. STG Duration 12/04/23 (12/04/23: MET GOAL) Snf Goal (LTG) Pt will be independent in a self care HEP for PF/core strengthening while minimizing core pressure increase, hip/ trunk ROM ex's. 12/04/23: HEP: HIp stretches (Piriformis, lateral hip, fig 4 & Ilipsoas) LTG Duration 01/15/24 progressed 12/04/23. Assessment Summary Assessment The pt is a 38 yo female with mixed urinary incontinence and possibly pelvic floor congestion, exacerbated by LE lyphedema. She was also found to have dec'd trunk/hip mobility & dec'd core strength and R>L hip strength. She is on a HEP of hip stretches but strengthening has not yet been addressed. She returns after a little over 3 weeks due to scheduling difficulties . She is reporting improvement of voiding less, ~ 8x/day (initially 10-12x/day) due to drinking less fluids. She feels she is leaking less and wears 1 pad/day (initially was 2-3/day), and BMs are 3x/ day (was 4-5x/day). The pt is slowly improving as expected with intermittent therapy visits. Physical Therapy Plan Frequency and Duration Frequency of Treatment 1x/Week Duration of treatment (weeks) 12 Plan of Care Start Date 10/23/23 Plan of Care End Date 01/15/24 Next Visit Focus/Plan Next Note Type Treatment Note Next Visit Plan No Vemg strengthening until cleared of possible vaginal infection. Next: Assess PF (manual), Cont pt bladder retraining ( with urge deference technique) to increase time between voids. Review Kegel w/o substitute muscles, teach deep breathing if needed, review core pressure management with transfers (educate/discuss hip hinge with sit to stand), ADLS & proper body mechanics. Start Ther Ex: Strengthening: PF/ core, hip (IR/ER), MMT hip flex/AB; and ROM: trunk (flex, R rot, RSB). STM of abdomen (and urachus) & bladder mobility. POC: MIXED urinary incontinence rehab. No Biofeedback per . Pt education, Manual therapy, Therapeutic Exercises, Therapeutic Activities, Neuromuscular Reeducation ( with biofeedback vaginal sensor), pt education/self care and HEP.
--- NOTE | 2024-01-14 16:25 | PT.OTN ---
Addendum entered and electronically signed by Abbi Unger, PT 01/14/24 16:26: PUF score is 9. Original Note: Current Diagnoses Stress incontinence (female) (male) (01/14/24) Physical Therapy Treatment Note PT-OP-A Visit Information Start: 10/15/23 16:46 Freq: Status: Active Protocol: Document 01/14/24 13:03 LRN (Rec: 01/14/24 13:49 LRN [id number]) Out-Patient Physical Therapy Visit Information Visit Information Visit Type Treatment Note Visit Start Time 13:03 Visit Stop Time 13:47 Visit Number 5 Evaluation Information Evaluation Date 10/23/23 Precautions Precautions LE lymphedema, ulcers, back pain, surgical history ( ruptured peptic ulcer, abdominoplasty, breast augmentation). PT-OP-B Current Condition Start: 10/15/23 16:46 Freq: Status: Active Protocol: Document 10/23/23 11:25 LRN (Rec: 10/23/23 12:24 LRN [id number]) Current Condition History of Current Condition Onset Date 3.5 yrs ago. Current Complaints Urinary incontinence History of Current Condition YARED started 3.5 yrs ago [place] that pt thoughout was normal, so did nothing about it until now. 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 She currently is having lymphedema treatments at [facility] in [place] (seen for 6 sessions to date). She plans to soon get a LE compression machine for the LE's for home use. Pt sleeps with a CPAP machine. Prior Treatments and Tests None. Pt is currently being treated for LE lymphedema. Developmental History Developmental History Has 2 children, first natural, 2nd emergency after 16 hrs of waiting. had 2 epidurals because anesthesia didn't work first 2 times. No urinary leakage after first child. 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 HEP. Current Functional Impairments (Reported) Functional Limitations- Work/School Has been in for 23 yrs. Functional Limitations- Recreation/ She runs 3-4x/week and does an Hobbies ex class. States she has been told she shouldn't run, but to incline walk instead. Personal Factors Other Personal Factors That May Effect Receiving lymphatic therapy Therapy/Recovery for LE lymphedema. 02/01/16 surgery for ruptured peptic ulcer and almost from sepsis (6 months after having son). Oct 2018 - adominalplasty. Recovering from rough divorce that ended a yr ago. PT-OP-C Subjective Start: 10/15/23 16:46 Freq: Status: Active Protocol: Document 01/14/24 13:03 LRN (Rec: 01/14/24 13:49 LRN [id number]) OP-PT Subjective Patient Comments Patient Comments Has stopped running and doing partial planks. Has stopped leaking and not leaking with coughing; No longer has fear of leakage with walking; therefore stopped using pads. Is waiting when done urinating and is now fully emptying. Has stopped the lymphatic sessions but is doing the home treatments. Not going every hour and reduced caffeine intake (1/day ). PT-OP-I Pelvic Floor Start: 10/15/23 16:46 Freq: Status: Active Protocol: Document 01/14/24 13:03 LRN (Rec: 01/14/24 13:49 LRN [id number]) Pelvic Floor Assessment Contraction Ability Muscle Endurance (Seconds) 3 Number of Quick Contractions In 10 6 Seconds PT-OP-J Posture/Palpation/Skin Start: 10/15/23 16:46 Freq: Status: Active Protocol: Document 10/23/23 11:25 LRN (Rec: 10/23/23 12:24 LRN [id number]) Posture Evaluation Position Standing L-Spine Posture Increased Lordosis Shoulder Posture (R) Elevated Pelvis Posture Anteriorly Tilted Knee Posture (L) Genu Valgus,(R) Genu Valgus Comments Posture Comments Dowager hump. Palpation Assessment Location Abdomen Palpation Location Decreased soft tissue mobility on L side of trunk. Palpation Findings Soft Tissue Tightness PT-OP-K Range of Motion Start: 10/15/23 16:46 Freq: Status: Active Protocol: Document 10/23/23 11:25 LRN (Rec: 10/23/23 12:24 LRN [id number]) Lumbar Spine Range of Motion Lumbar Spine Active Degrees Testing Position Standing Flexion 50 Extension 35 Rotation Left 30 Rotation Right 0 Lateral Flexion Left 20 Lateral Flexion Right 15 ROM Limitations Soft Tissue Tightness Hip Goniometric Range of Motion Hip Right Passive Testing Position Supine Abduction 25 Internal Rotation 20 External Rotation 40 Left Passive Testing Position Supine Abduction 25 Internal Rotation 40 External Rotation 30 PT-OP-M Strength Start: 10/15/23 16:46 Freq: Status: Active Protocol: Document 10/23/23 11:25 LRN (Rec: 10/23/23 12:24 LRN [id number]) Trunk Strength Trunk Manual Muscle Testing Core Stabilization Loss of core rotational stability with MMT of LE's. Hip Strength Hip Manual Muscle Testing Right Abduction 3 Fair Adduction 3- Fair- External Rotation 3+ Fair+ Comments Strength is 5/5 except as indicated above. Left External Rotation 3+ Fair+ Comments Strength is 5/5 except as indicated above. PT-OP-Q Treatments Start: 10/15/23 16:46 Freq: Status: Active Protocol: Document 01/14/24 13:03 LRN (Rec: 01/14/24 13:49 LRN [id number]) Therapeutic Exercises Supine Exercises Lateral Hip stretch Side bilateral Reps/Minutes 4' Comments extra time to determine best position and max tolerated stretch Pirformis stretch Side bilateral Reps/Minutes 4' Comments extra time to determine best position and max tolerated stretch Ilipoas stretch Supine Exercise Name Seng Test position with leg off plinth Side bilateral Reps/Minutes 4' Comments extra time to determine best position and max tolerated stretch Kegel long hold Supine Exercise Name Kegels w/self palpation to isolate PF from abdominals Reps/Minutes 3 breath hold/20 SR Comments Pt cued to use hands to monitor for abdominal contraction Kegel Quick Reps/Minutes 1-2 SH/4 SR, 10-15x Comments Pt cued to breath during ex, hands on belly to avoid abdominal contracton. Therapeutic Activity Therapeutic Activity Coordination of breath/Kegel with Transfers Name Sit<>stand, sit<>sup Reps/Minutes PF holds during transfers ( quick and long hold type) Comments Cued to hold Kegel from sit<> sup PT-OP-T Assessment and Plan Start: 10/15/23 16:46 Freq: Status: Active Protocol: Document 01/14/24 13:03 LRN (Rec: 01/14/24 13:49 LRN [id number]) Physical Therapy Assessment Goals Three Impairment Increased frequency of urination (10-12x/day) Short Term Goal (STG) Pt will be educate in urge deference technique for bladder retraining to decrease times of urination to no more than 8x/day. 12/04/23: Pt educated in urge deference technique for bladder retraining. 12/28/23: Getting up 1x/night , and voiding every 2.5 hrs. : Getting up 1x/night and getting up closer to time of wakening, but not a super strong urge. AT work, voiding every 2.5 hrs (6-7x/day including nighttime). STG Duration 12/04/23 (01/14/24: MET GOAL ) Air Analyst Goal (LTG) Pt will be able to decrease frequency of urination to no more than every 2 hours. 01/14/24: Voiding every 2.5 hrs. LTG Duration 01/15/24 (01/14/24: MET GOAL) Two Impairment Urinary incontinence, requiring use of 2-3 pads/day Short Term Goal (STG) Improve PF strength and pt educated in core pressure management with transfers & ADLs, with pt able to decrease use of pads to 1x/during the day. 12/04/23: Pt educated in transfers to lessen core abdominal pressure and pt able to demonstrate proper coordination. 12/28/23: Reviewed coordination of transfers with breath and educated coordination with ADLs. Pt using 1 pad during the day. STG Duration 12/04/23 (12/28/23: MET GOAL ) Longterm Goal (LTG) Pt will be able to regain urinary continence with coughing to elimninate use of daily pads and be able to reduce fear of urinary leakage with walking. 01/14/24: Pt not leaking and not leaking with coughing; and is not wearing pads. Pt no longer has fear of leaking with coughing. LTG Duration 01/15/24 (01/14/24: MET GOAL ) One Impairment Pt lacks appropriate self care HEP Short Term Goal (STG) Pt educated in proper transfers to lessen core abdominal pressure. 12/04/23: Pt educated in transfers to lessen core abdominal pressure and pt able to demonstrate proper coordination. STG Duration 12/04/23 (12/04/23: MET GOAL) Longterm Goal (LTG) Pt will be independent in a self care HEP for PF/core strengthening while minimizing core pressure increase, hip/ trunk ROM ex's. 12/04/23: HEP: HIp stretches (Piriformis, lateral hip, fig 4 & Ilipsoas) LTG Duration 01/15/24 (01/14/24: MET GOAL ) Assessment Summary Assessment Pt is a 38 yo female who initially presented with mixed urinary incontinence exacerbated by LE lymphedema and posible pelvic jarrett (PF) congestion. Pt has been seen for 4 treatment visits, and attends today with reports of no longer having urinary leakage with walking, coughing or any leakage through her day; therefore she is no longer wearing pads. The pt shows good understanding per verbal review, of how to use the urinary urge technique to increase time between urinary voids, with a future goal of urinating every 3-4 hours and plans to set reminders to help her void. The pt does use her abdominals with PF contractions; indicating probable PF muscle fatigue requiring assist of her abdominal muscles to maintain a sustained contraction. Per manual PF assessment she is able to hold a PF contraction 2-3 secs and is aware of when her muscles fatigue, number of quick contractions and long hold remain the same, but her symptoms of urinary leakage has resolved. The pt is aware of how she can progress towards hold 10 secs over time to help maintain her level of continence. She understands if something where to change she can seek another referral for further physical therapy. Physical Therapy Plan Discharge Physical Therapy Discharge Reasons Goals Met Discharge Comments The pt is ready to be placed on her HEP to work towards further improving her PF endurance and ability to isolate her PF from substitute muscles. Therapy may be needed in the future, pt is aware a new referral would be needed to return to therapy. Thank you for your referral.
== END 2024-01-25 13:42 | disposition home or self-care (01) ==
LOC: PHYS 13:00
PROVIDERS: Family Provider General Practice; PCP Student in an Organized Health Care Education/Training Program; Referring Provider General Practice; Visit Provider General Practice
DX: N39.3 Stress incontinence (female) (male) (principal)
CPT/HCPCS: 97110; 97162; 97530; 97535

== ENCOUNTER → 2024-04-21 11:47 | Outpatient (CLI) | payer OTHER, SELFPAY ==
--- NOTE | 2024-04-21 11:51 | DI.RAD.S_ITS ---
PROCEDURE: XR CHEST 2V INDICATIONS: Unspecified asthma, uncomplicated TECHNIQUE: 2 views of the chest were acquired. COMPARISON: None. FINDINGS: Surgical changes and devices: None. Lungs and pleura: Lungs are clear. No pleural effusions or pneumothorax. Mediastinum: Mediastinal contours are normal. Heart size is normal. Bones and chest wall: No suspicious bony abnormalities. Soft tissues appear unremarkable. IMPRESSION: No acute cardiopulmonary abnormality is seen. Approved by: Cayden Mo M.D. on 04/21/2024 at 16:28
== END ==
PROVIDERS: Family Provider General Practice; PCP Student in an Organized Health Care Education/Training Program; Referring Provider Chiropractor; Visit Provider Chiropractor
DX: J45.909 Unspecified asthma, uncomplicated (principal); Z87.891 Personal history of nicotine dependence
CPT/HCPCS: 71046; 94060